=== PATIENT | female | born 1960 | race Caucasian/White ===

== ENCOUNTER 2021-04-09 16:37 | Emergency (ER) | payer OTHER ==
[2021-04-09] MEDS ORDERED: SODIUM CHLORIDE 0.9% 1,000 ML IV STA (17:11)
[2021-04-09] MEDS ORDERED: ONDANSETRON 4 MG/2 ML VIAL IVP STA (17:11)
[2021-04-09 17:19] LABS: BASOPHILS % (AUTO) 0.1 %; HCT - HEMATOCRIT 44.5 % (37.0-47.0); HGB - HEMOGLOBIN 15.3 g/dL (12.0-16.0); LYMPHOCYTES # (AUTO) 2.3 10^3/uL (1.5-3.5); LYMPHOCYTES % (AUTO) 23.1 %; MEAN CORPUSCULAR HEMOGLOBIN 30.5 pg (27.0-31.0); MEAN CORPUSCULAR HGB CONC 34.4 g/dL (32.0-36.0); MEAN CORPUSCULAR VOLUME 88.8 fL (81.0-99.0); MEAN PLATELET VOLUME 10.8 fL (7.9-10.8); MONOCYTES # (AUTO) 0.5 10^3/uL (0.0-1.0); NEUTROPHILS # (AUTO) 7.1 10^3/uL (1.5-6.6); NEUTROPHILS % (AUTO) 71.3 %; PLT - PLATELET COUNT 212 10^3/uL (130-450); RED BLOOD COUNT 5.01 10^6/uL (4.20-5.40); RED CELL DISTRIBUTION WIDTH 11.9 % (12.0-15.0)
[2021-04-09 17:26] LABS: CALCIUM 10.2 mg/dL (8.5-10.3); CREATININE 1.1 mg/dL (0.4-1.0); MAGNESIUM 2.4 mg/dL (1.7-2.8); PHOSPHORUS 3.1 mg/dL (2.5-4.6); POTASSIUM 3.5 mmol/L (3.5-5.0)
--- NOTE | 2021-04-09 17:50 | ED Physician Documentation ---
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 On her third trip to the [place] she started to feel dizzy and nauseous and threw up a few times. She was spreading. Sweating profusely and clammy. Now feels better. On my evaluation she is already had about 800 mL of normal saline. Review of Systems Constitutional: reports: Sweats. denies: Fever Eyes: reports: Reviewed and negative Nose: reports: Reviewed and negative PD PAST MEDICAL HISTORY - Present Medications Home Medications: Ambulatory Orders Medication Instructions Recorded Confirmed No Known Home Medications 04/09/21 04/09/21 - Allergies Allergies/Adverse Reactions: Allergies Allergy/AdvReac Type Severity Reaction Status Date / Time No Known Drug Allergies Allergy Verified 04/09/21 16:54 PD ED PE NORMAL - Vitals Vital signs reviewed: Yes - General General: Alert and oriented X 3, No acute distress - HEENT HEENT: PERRL, EOMI - Neck Neck: Supple, no meningeal sign, No bony TTP - Cardiac Cardiac: RRR, No murmur - Respiratory Respiratory: No respiratory distress, Clear bilaterally - Abdomen Abdomen: Non tender - Derm Derm: No rash - Neuro Neuro: Alert and oriented X 3, Normal speech Results - Vitals Vitals: Vital Signs - 24 hr 04/09/21 04/09/21 16:43 18:04 Temperature 36.7 C 36.8 C Heart Rate 106 H 92 Respiratory 20 18 Rate Blood Pressure 134/76 H 133/66 H O2 Saturation 97 96 Oxygen O2 Source Room air - Labs Labs: Laboratory Tests 04/09/21 04/09/21 17:07 17:07 WBC 10.0 RBC 5.01 Hgb 15.3 Hct 44.5 MCV 88.8 MCH 30.5 MCHC 34.4 RDW 11.9 L Plt Count 212 MPV 10.8 Neut # (Auto) 7.1 H Lymph # (Auto) 2.3 [place] # (Auto) 0.5 Eos # (Auto) 0.0 Baso # (Auto) 0.0 Absolute Nucleated RBC 0.00 Nucleated RBC % 0.0 Sodium 138 Potassium 3.5 Chloride 104 Carbon Dioxide 23 Anion Gap 11.0 BUN 17 Creatinine 1.1 H Estimated GFR (MDRD) 51 L Glucose 159 H Calcium 10.2 Phosphorus 3.1 Magnesium 2.4 Total Creatine Kinase 121 PD MEDICAL DECISION MAKING - ED course ED course: 61-year-old woman after heavy physical labor in the heat developed heat exhaustion. On my evaluation she had already received some IV fluids and is already feeling much better. Departure - Departure Disposition: 01 Home, Self Care Clinical Impression: Heat exhaustion Qualifiers: Encounter type: initial encounter Qualified Code(s): T67.5XXA - Heat exhaustion, unspecified, initial encounter Condition: Good Record reviewed to determine appropriate education?: Yes Instructions: ED Exhaustion Heat Comments: For the next 48 hours, no physical labor. Stay in the shade or inside or even better in a air-conditioned environment. Return for new or worsening symptoms. Discharge Date/Time: 04/09/21 18:10
[2021-04-09 18:04] VITALS: BP 133/66
== END 2021-04-09 18:10 | disposition home or self-care (01) ==
LOC: ED 16:37
DX: T67.5XXA Heat exhaustion, unspecified, initial encounter (principal); X58.XXXA Exposure to other specified factors, initial encounter; Y93.H9 Activity, other involving exterior property and land maintenance, building and construction
CPT/HCPCS: 36415; 80048; 82550; 83735; 84100; 85025; 96361; 96374; 99283